=== PATIENT | female | born 1945 | race Caucasian/White ===

== ENCOUNTER 2022-01-12 08:15 | Day surgery (SDC) | payer OTHER, MEDICAID ==
[~2022-01-12] VITALS: Ht 170.2 cm; Wt 72.7 kg
[~2022-01-12 08:15] MED LIST: ATOR-2 PO; DIGO125T2 PO; KETO5DRO39 RIGHTEYE; OFLO5DRO3; VERA240C3 PO; WARF-55 PO
[2022-01-12 08:27] VITALS: BP 146/64
[2022-01-12] MEDS ORDERED: MIDAZolam 1 MG/ML 5ML VIAL ONE ×2 (08:27→08:28)
[2022-01-12] MEDS ORDERED: fentaNYL/PF 50MCG/1 ML 2ML syringe ONE (08:27)
[2022-01-12 09:12] VITALS: BP 121/71
[2022-01-12 09:22] VITALS: BP 120/60
[2022-01-12 09:32] VITALS: BP 134/68
[2022-01-12 09:42] VITALS: BP 128/65
== END 2022-01-12 09:50 | disposition home or self-care (01) ==
LOC: GI LAB 08:15
PROVIDERS: ATTEND Internal Medicine Gastroenterology
DX: Z12.11 Encounter for screening for malignant neoplasm of colon (principal); D12.3 Benign neoplasm of transverse colon; D12.5 Benign neoplasm of sigmoid colon; K57.30 Diverticulosis of large intestine without perforation or abscess without bleeding; I48.91 Unspecified atrial fibrillation; Z79.899 Other long term (current) drug therapy
CPT/HCPCS: 45385; 88305; C1773; J2250; J3010; J7040; Z7512; 99152; A4620